=== PATIENT | female | born 1940 | race Hispanic/Latino ===

== ENCOUNTER 2017-11-11 21:26 | Emergency (ER) | payer MEDICARE ==
[~2017-11-11 21:26] MED LIST: ASPI-1197 PO; CARV3.12 PO; CEFD300C3 PO; GLIM4TAB3 PO; LOSA50TA37 PO; NAPR-1023 PO; SITA100T12 PO
[2017-11-11 22:05] LABS: BASOPHILS % (AUTO) 2.6 % (0.0-5.0); EOSINOPHILS % (AUTO) 2.2 % (0.0-8.0); HEMATOCRIT 25.8 % (36-48); LYMPHOCYTES % (AUTO) 15.5 % (21.0-51.0); MEAN CORPUSCULAR HEMOGLOBIN 23.6 pg (27.0-33.0); MEAN CORPUSCULAR HGB CONC 33.4 g/dL (32.0-36.0); MEAN CORPUSCULAR VOLUME 70.7 fL (79-99); MONOCYTES % (AUTO) 12.2 % (3.0-13.0); NEUTROPHILS % (AUTO) 67.5 % (40.0-77.0); PLATELET COUNT (AUTO) 129 K/uL (130-400); RED BLOOD CELL COUNT(AUTO) 3.65 MIL/uL (4.00-5.50); RED CELL DISTRIBUTION WIDTH 17.7 % (11.0-15.5); WHITE BLOOD COUNT (AUTO) 4.9 K/uL (4.8-10.8)
[2017-11-11 22:18] LABS: CREATININE 1.1 mg/dL (0.5-1.5); POTASSIUM 4.8 mmol/L (3.5-5.1)
== END 2017-11-11 23:47 | disposition home or self-care (01) ==
LOC: EDH 21:26
DX: I10 Essential (primary) hypertension (principal); E11.9 Type 2 diabetes mellitus without complications; E78.5 Hyperlipidemia, unspecified; Z90.49 Acquired absence of other specified parts of digestive tract
CPT/HCPCS: 36415; 80048; 82948; 84484; 85025; 93005

== ENCOUNTER 2017-11-15 19:38 | Emergency (ER) | payer MEDICARE | END 2017-11-15 21:01 | disposition home or self-care (01) | LOC: EDH 19:38 | DX: I10 Essential (primary) hypertension (principal); E11.9 Type 2 diabetes mellitus without complications; E78.5 Hyperlipidemia, unspecified; Z90.49 Acquired absence of other specified parts of digestive tract; Z98.890 Other specified postprocedural states | CPT/HCPCS: 82948; 99282 ==

== ENCOUNTER 2017-12-29 15:50 | Emergency (ER) | payer MEDICARE ==
[2017-12-29] MEDS ORDERED: ACETAMINOPHEN 325 MG TAB ONE (16:20)
[2017-12-29] MEDS ORDERED: NITROGLYCERIN 1GM/1 INCH PACKET TD ONE (16:20)
[2017-12-29 16:28] LABS: BASOPHILS % (AUTO) 0.4 % (0.0-5.0); EOSINOPHILS % (AUTO) 3.1 % (0.0-8.0); HEMATOCRIT 28.2 % (36-48); LYMPHOCYTES % (AUTO) 17.1 % (21.0-51.0); MEAN CORPUSCULAR HEMOGLOBIN 24.8 pg (27.0-33.0); MEAN CORPUSCULAR HGB CONC 32.2 g/dL (32.0-36.0); MONOCYTES % (AUTO) 10.6 % (3.0-13.0); NEUTROPHILS % (AUTO) 68.8 % (40.0-77.0); PLATELET COUNT (AUTO) 110 K/uL (130-400); RED BLOOD CELL COUNT(AUTO) 3.67 MIL/uL (4.00-5.50); RED CELL DISTRIBUTION WIDTH 25.7 % (11.0-15.5); WHITE BLOOD COUNT (AUTO) 4.2 K/uL (4.8-10.8)
[2017-12-29 16:38] LABS: POTASSIUM 4.6 mmol/L (3.5-5.1)
[2017-12-29 16:39] LABS: INR 1.02 (0.85-1.15); PROTHROMBIN TIME 10.7 SEC (9.6-11.6)
[2017-12-29 16:42] LABS: ALBUMIN 3.4 g/dL (3.5-5.0); BILIRUBIN,TOTAL 0.3 mg/dL (0.2-1.0); TOTAL PROTEIN, SERUM 6.9 g/dL (6.0-8.3)
[2017-12-29 17:29] LABS: APPEARANCE,URINE Clear (CLEAR); BILIRUBIN,URINE Negative (NEGATIVE); COLOR,URINE Yellow (YELLOW); GLUCOSE, URINE (UA) 500 mg/dL (NEGATIVE); KETONES,URINE Negative (NEGATIVE); LEUKOCYTE ESTERASE ,URINE Trace (NEGATIVE); NITRATE,URINE Negative (NEGATIVE); OCCULT BLOOD,URINE Negative (NEGATIVE); PH,URINE 6.5 (5.0-8.0); PROTEIN,URINE Negative (NEGATIVE)
[2017-12-29 17:38] LABS: BACTERIA,URINE None Seen /HPF (None Seen); RBC,URINE 0-1 /HPF (0-1); WBC,URINE 0-1 /HPF (0-1)
[2018-01-15] MEDS ORDERED: CARV12.511 PO (20:37)
[2018-01-15] MEDS ORDERED: LOSA50TA37 PO (20:37)
[2018-01-15] MEDS ORDERED: LORA1TAB3 PO (20:37)
[2018-01-15] MEDS ORDERED: SITA100T12 PO (20:37)
== END 2017-12-29 20:04 | disposition home or self-care (01) ==
LOC: EDH 15:50
DX: F41.9 Anxiety disorder, unspecified (principal); E11.9 Type 2 diabetes mellitus without complications; I10 Essential (primary) hypertension; E78.5 Hyperlipidemia, unspecified
CPT/HCPCS: 36415; 71045; 80053; 81001; 84484; 85025; 85610; 85730; 93005

== ENCOUNTER 2018-03-20 10:37 | Emergency (ER) | payer MEDICARE ==
[~2018-03-20 10:37] MED LIST changes: +CARV12.511 PO; -CARV3.12 PO; -CEFD300C3 PO; -GLIM4TAB3 PO; +LEVO250T59 PO; -LOSA50TA37 PO; -NAPR-1023 PO; -SITA100T12 PO
[2018-03-20 11:04] LABS: BASOPHILS % (AUTO) 0.4 % (0.0-5.0); EOSINOPHILS % (AUTO) 2.6 % (0.0-8.0); HEMATOCRIT 38.4 % (36-48); LYMPHOCYTES % (AUTO) 18.4 % (21.0-51.0); MEAN CORPUSCULAR HEMOGLOBIN 27.1 pg (27.0-33.0); MEAN CORPUSCULAR HGB CONC 32.2 g/dL (32.0-36.0); MEAN CORPUSCULAR VOLUME 84.1 fL (79-99); MONOCYTES % (AUTO) 9.9 % (3.0-13.0); NEUTROPHILS % (AUTO) 68.7 % (40.0-77.0); PLATELET COUNT (AUTO) 88 K/uL (130-400); RED BLOOD CELL COUNT(AUTO) 4.57 MIL/uL (4.00-5.50); WHITE BLOOD COUNT (AUTO) 3.1 K/uL (4.8-10.8)
[2018-03-20 11:39] LABS: CREATININE 1.3 mg/dL (0.5-1.5); POTASSIUM 4.9 mmol/L (3.5-5.1)
[2018-03-20 11:44] LABS: ALBUMIN 3.5 g/dL (3.5-5.0); BILIRUBIN,TOTAL 0.6 mg/dL (0.2-1.0); TOTAL PROTEIN, SERUM 7.4 g/dL (6.0-8.3)
[2018-03-20] MEDS ORDERED: ASPIRIN 325 MG TABLET ONE (11:50)
[2018-03-20 11:51] LABS: APPEARANCE,URINE Clear (CLEAR); BILIRUBIN,URINE Negative (NEGATIVE); COLOR,URINE Yellow (YELLOW); GLUCOSE, URINE (UA) Negative (NEGATIVE); KETONES,URINE Negative (NEGATIVE); LEUKOCYTE ESTERASE ,URINE Large (NEGATIVE); NITRATE,URINE Negative (NEGATIVE); OCCULT BLOOD,URINE Negative (NEGATIVE); PH,URINE 6.5 (5.0-8.0); PROTEIN,URINE Negative (NEGATIVE); UROBILINOGEN,URINE 0.2 mg/dL (0.2-1.0)
[2018-03-20 12:08] LABS: SQUAMOUS EPITHELIAL CELL,UR Few /HPF (0-2)
[2018-03-20 12:09] LABS: BACTERIA,URINE Few /HPF (None Seen); RBC,URINE None Seen /HPF (0-1); WBC,URINE 26-50 /HPF (0-1)
[2018-03-20] MEDS ORDERED: CEFTRIAXONE SODIUM 1 GM ONE (13:22)
[2018-03-20] MEDS ORDERED: SODIUM CHLORIDE 0.9% 100 ML IV ONE (13:23)
[2018-03-20] MEDS ORDERED: ACETAMINOPHEN 325 MG TAB ONE ×2 (14:37→14:45)
== END 2018-03-20 16:48 | disposition home or self-care (01) ==
LOC: EDH 10:37
DX: R07.89 Other chest pain (principal); N30.00 Acute cystitis without hematuria; R51 Headache; E11.9 Type 2 diabetes mellitus without complications; I10 Essential (primary) hypertension; Z79.899 Other long term (current) drug therapy
CPT/HCPCS: 36415; 80053; 81001; 82553; 84484 ×2; 85025; 87088; 87186; 93005 ×2; 96374; 99291; J0696

== ENCOUNTER 2018-03-29 09:26 | Inpatient (IN) | payer MEDICARE ==
[~2018-03-29] VITALS: Ht 154.9 cm; Wt 95.3 kg
[2018-03-29 10:25] LABS: BASOPHILS % (AUTO) 0.5 % (0.0-5.0); MEAN CORPUSCULAR HEMOGLOBIN 27.1 pg (27.0-33.0); MEAN CORPUSCULAR HGB CONC 32.7 g/dL (32.0-36.0); MEAN CORPUSCULAR VOLUME 82.7 fL (79-99); NEUTROPHILS % (AUTO) 68.5 % (40.0-77.0); NUCLEATED RED BLOOD CELLS 0.1 % (0.0-0.19); PLATELET COUNT (AUTO) 110 K/uL (130-400); RED BLOOD CELL COUNT(AUTO) 4.47 MIL/uL (4.00-5.50); RED CELL DISTRIBUTION WIDTH 16.7 % (11.0-15.5); WHITE BLOOD COUNT (AUTO) 4.9 K/uL (4.8-10.8)
[2018-03-29 10:40] LABS: INR 1.06 (0.85-1.15); PARTIAL THROMBOPLASTIN TIME 29.2 SEC (26.3-35.5); PROTHROMBIN TIME 11.1 SEC (9.6-11.6)
[2018-03-29 11:05] LABS: CREATININE 1.5 mg/dL (0.5-1.5); POTASSIUM 5.1 mmol/L (3.5-5.1)
[2018-03-29 11:10] LABS: ALBUMIN 3.3 g/dL (3.5-5.0); BILIRUBIN,TOTAL 0.7 mg/dL (0.2-1.0); TOTAL PROTEIN, SERUM 7.2 g/dL (6.0-8.3)
[2018-03-29] MEDS ORDERED: ACETAMINOPHEN 325 MG TAB PO PRN (15:15)
[2018-03-29] MEDS ORDERED: ONDANSETRON HCL 4 MG/2 ML VIAL IV PRN (15:15)
[2018-03-29] MEDS ORDERED: MORPHINE SULFATE 2 MG/ML 1ML SYG IV PRN (15:15)
[2018-03-29] MEDS ORDERED: HYDRALAZINE HCL 20 MG/ML VIAL IV PRN (15:15)
[2018-03-29] MEDS: INSULIN HUMULIN R 100 UNIT/ML 3ML SQ SCH ×2 (16:30→21:00)
[2018-03-29 16:36] VITALS: BP 163/81
[2018-03-29] MEDS: PANTOPRAZOLE 40 MG/VIAL IVP SCH ×2 (16:41→19:56)
[2018-03-29] MEDS: SODIUM CHLORIDE 0.9% 1000ML 1,000 ML IV SCH (16:50)
[2018-03-29 19:26] VITALS: BP 162/67
[2018-03-29] MEDS: CARVEDILOL 12.5 MG TABLET PO SCH (19:59)
[2018-03-29 23:13] VITALS: BP 125/54
[2018-03-30] VITALS (18 sets, daily range): BP systolic 104–159; BP diastolic 56–73
[2018-03-30] MEDS: SODIUM CHLORIDE 0.9% 1000ML 1,000 ML IV SCH ×3 (03:12→22:19)
[2018-03-30 05:24] LABS: HEMATOCRIT 34.2 % (36-48); MEAN CORPUSCULAR HEMOGLOBIN 28.5 pg (27.0-33.0); MEAN CORPUSCULAR HGB CONC 34.2 g/dL (32.0-36.0); MEAN CORPUSCULAR VOLUME 83.2 fL (79-99); PLATELET COUNT (AUTO) 111 K/uL (130-400); RED BLOOD CELL COUNT(AUTO) 4.11 MIL/uL (4.00-5.50); RED CELL DISTRIBUTION WIDTH 17.3 % (11.0-15.5); WHITE BLOOD COUNT (AUTO) 4.1 K/uL (4.8-10.8)
[2018-03-30 05:36] LABS: CREATININE 1.3 mg/dL (0.5-1.5); POTASSIUM 4.7 mmol/L (3.5-5.1)
[2018-03-30] MEDS: INSULIN HUMULIN R 100 UNIT/ML 3ML SQ SCH ×4 (06:12→21:00)
[2018-03-30] MEDS: PANTOPRAZOLE 40 MG/VIAL IVP SCH ×2 (09:00→22:17)
[2018-03-30] MEDS: CARVEDILOL 12.5 MG TABLET PO SCH ×2 (09:00→22:17)
[2018-03-30] MEDS ORDERED: PROPOFOL 10 MG/ML 20ML VIAL IV ONE ×2 (14:54)
[2018-03-30] MEDS ORDERED: PANTOPRAZOLE SODIUM 80 MG in SODIUM CHLORIDE 0.9% 100 ML IV SCH (18:00)
[2018-03-30] MEDS ORDERED: PANTOPRAZOLE 40 MG/VIAL IV SCH (18:00)
[2018-03-31] VITALS (7 sets, daily range): BP systolic 114–151; BP diastolic 49–70
[2018-03-31 04:55] LABS: BASOPHILS % (AUTO) 0.5 % (0.0-5.0); HEMATOCRIT 32.4 % (36-48); LYMPHOCYTES % (AUTO) 17.9 % (21.0-51.0); MEAN CORPUSCULAR HEMOGLOBIN 27.6 pg (27.0-33.0); MEAN CORPUSCULAR HGB CONC 33.2 g/dL (32.0-36.0); MEAN CORPUSCULAR VOLUME 82.9 fL (79-99); MONOCYTES % (AUTO) 17.5 % (3.0-13.0); NEUTROPHILS % (AUTO) 63.1 % (40.0-77.0); PLATELET COUNT (AUTO) 85 K/uL (130-400); RED BLOOD CELL COUNT(AUTO) 3.91 MIL/uL (4.00-5.50); RED CELL DISTRIBUTION WIDTH 16.9 % (11.0-15.5); WHITE BLOOD COUNT (AUTO) 3.2 K/uL (4.8-10.8)
[2018-03-31 04:59] LABS: POTASSIUM 4.4 mmol/L (3.5-5.1)
[2018-03-31 05:04] LABS: INR 1.06 (0.85-1.15); PROTHROMBIN TIME 11.1 SEC (9.6-11.6)
[2018-03-31 05:32] LABS: BAND NEUTROPHILS % (MANUAL) 11 % (0-2); BASOPHILS % (MANUAL) 2 % (0-2); EOSINOPHILS % (MANUAL) 2 % (1-6); LYMPHOCYTES % (MANUAL) 20 % (22-44); MAN.DIFF COMMENT-IMPRESSION MANUAL DIFFERENTIAL; MONOCYTES % (MANUAL) 13 % (2-9); PLATELET MORPHOLOGY COMMENT DECREASED; SEGMENTED NEUTROPHILS % 52 % (40-70)
[2018-03-31] MEDS: PANTOPRAZOLE 40 MG/VIAL IVP SCH ×2 (09:00→21:30)
[2018-03-31] MEDS: CARVEDILOL 12.5 MG TABLET PO SCH ×2 (09:26→21:30)
[2018-03-31] MEDS: INSULIN HUMULIN R 100 UNIT/ML 3ML SQ SCH ×2 (11:30→21:00)
[2018-03-31] MEDS ORDERED: PROP10TA10 PO (18:36)
[2018-03-31] MEDS ORDERED: PANT40TA PO (18:36)
[2018-03-31] MEDS ORDERED: LACT10SO9 PO (18:36)
[2018-03-31] MEDS: SODIUM CHLORIDE 0.9% 1000ML 1,000 ML IV SCH (19:50)
== END 2018-03-31 22:30 | disposition home or self-care (01) | DRG 432 ==
LOC: EDH 09:26 → EDHIP 14:10 → 3DH 15:25
PROVIDERS: ADMIT Hospitalist; ATTEND Hospitalist
PROC: 06L38CZ Occlusion of Esophageal Vein with Extraluminal Device, Via Natural or Artificial Opening Endoscopic (ICD-10-PCS; principal; 2018-03-30)
DX: K74.60 Unspecified cirrhosis of liver (principal); I85.11 Secondary esophageal varices with bleeding; K29.01 Acute gastritis with bleeding; N17.9 Acute kidney failure, unspecified; D61.818 Other pancytopenia; K76.6 Portal hypertension; E11.21 Type 2 diabetes mellitus with diabetic nephropathy; I10 Essential (primary) hypertension; R19.5 Other fecal abnormalities; K31.89 Other diseases of stomach and duodenum; K55.20 Angiodysplasia of colon without hemorrhage; K80.20 Calculus of gallbladder without cholecystitis without obstruction; Z79.82 Long term (current) use of aspirin; Z79.899 Other long term (current) drug therapy; Z86.73 Personal history of transient ischemic attack (TIA), and cerebral infarction without residual deficits; Z83.3 Family history of diabetes mellitus
CPT/HCPCS: 36415; 43244; 76700; 80048; 80053; 82105; 82140; 82270; 82948; 83690; 84484; 85025; 85027; 85610; 85730; 86677; 93005; 93975; C9113; J2704; J7030

== ENCOUNTER 2018-10-24 22:31 | Emergency (ER) | payer MEDICARE ==
[~2018-10-24 22:31] MED LIST changes: +LACT10SO9 PO; +PANT40TA PO; +PROP10TA10 PO
[2018-10-24] MEDS ORDERED: HYDROXYZINE HCL 25 MG TABLET ONE (22:58)
== END 2018-10-25 00:03 | disposition home or self-care (01) ==
LOC: EDH 22:31
DX: F41.9 Anxiety disorder, unspecified (principal); E11.9 Type 2 diabetes mellitus without complications; I10 Essential (primary) hypertension

== ENCOUNTER 2019-01-10 10:25 | Inpatient (IN) | payer MEDICARE | END 2019-01-14 13:17 | disposition home or self-care (01) | LOC: EDH 10:25 → 2DH 01-11 18:28 → EDHIP 14:31 | DX: D61.818 Other pancytopenia (principal); K92.2 Gastrointestinal hemorrhage, unspecified; N17.9 Acute kidney failure, unspecified; D62 Acute posthemorrhagic anemia; E87.5 Hyperkalemia; R19.5 Other fecal abnormalities ==

== ENCOUNTER 2019-04-11 09:28 | Day surgery (SDC) | payer MEDICARE ==
[2019-04-11] VITALS (8 sets, daily range): BP systolic 113–176; BP diastolic 63–75
[~2019-04-11] VITALS: Ht 154.9 cm; Wt 81.6 kg
[~2019-04-11 09:28] MED LIST changes: +AMLO5TAB9 PO; -CARV12.511 PO; -LACT10SO9 PO; -LEVO250T59 PO; +LOSA100T58 PO; +METF-444 PO; -PANT40TA PO; -PROP10TA10 PO; +PROPOFOL 10 MG/ML 20ML VIAL IV ONE; +SITA100T12 PO; +SODIUM CHLORIDE 0.9% 1000ML 1,000 ML IV ONE
[2019-04-11] MEDS ORDERED: FENTANYL CITRATE PF 50 MCG/1 ML 2ML VIAL ONE (12:03)
== END 2019-04-11 12:40 | disposition home or self-care (01) ==
LOC: ENDO 09:28 → DAH 09:28 → ENDO 12:40
PROVIDERS: ATTEND Internal Medicine Gastroenterology
DX: I85.01 Esophageal varices with bleeding (principal); I10 Essential (primary) hypertension; E11.9 Type 2 diabetes mellitus without complications; M19.90 Unspecified osteoarthritis, unspecified site; E66.9 Obesity, unspecified; D64.9 Anemia, unspecified; E78.2 Mixed hyperlipidemia; K74.60 Unspecified cirrhosis of liver
CPT/HCPCS: 43244; 82948 ×2; A4215; A4221; A4222; A4223; A4606; A4615; A4620; A4663; J2704; J3010; J7030; 43246

== ENCOUNTER 2020-02-13 09:50 | Emergency (ER) | payer MEDICARE ==
[~2020-02-13 09:50] MED LIST changes: -PROPOFOL 10 MG/ML 20ML VIAL IV ONE; -SODIUM CHLORIDE 0.9% 1000ML 1,000 ML IV ONE
[2020-02-13 10:22] LABS: BASOPHILS % (AUTO) 0.2 % (0.0-5.0); EOSINOPHILS % (AUTO) 1.4 % (0.0-8.0); HEMATOCRIT 32.4 % (36-48); LYMPHOCYTES % (AUTO) 10.1 % (21.0-51.0); MEAN CORPUSCULAR HEMOGLOBIN 26.4 pg (27.0-33.0); MEAN CORPUSCULAR HGB CONC 33.3 g/dL (32.0-36.0); MEAN CORPUSCULAR VOLUME 79.2 fL (79-99); MONOCYTES % (AUTO) 13.3 % (3.0-13.0); NEUTROPHILS % (AUTO) 74.2 % (40.0-77.0); PLATELET COUNT (AUTO) 143 K/uL (130-400); RED BLOOD CELL COUNT(AUTO) 4.09 MIL/uL (4.00-5.50); WHITE BLOOD COUNT (AUTO) 6.6 K/uL (4.8-10.8)
[2020-02-13 10:37] LABS: CREATININE 1.5 mg/dL (0.5-1.5); POTASSIUM 4.4 mmol/L (3.5-5.1)
[2020-02-13 10:41] LABS: ALBUMIN 3.5 g/dL (3.5-5.0); BILIRUBIN,TOTAL 0.6 mg/dL (0.2-1.0); TOTAL PROTEIN, SERUM 7.3 g/dL (6.0-8.3)
[2020-02-13 11:28] LABS: APPEARANCE,URINE Clear (CLEAR); BILIRUBIN,URINE Negative (NEGATIVE); COLOR,URINE Yellow (YELLOW); GLUCOSE, URINE (UA) Negative (NEGATIVE); KETONES,URINE Negative (NEGATIVE); LEUKOCYTE ESTERASE ,URINE Trace (NEGATIVE); NITRATE,URINE Negative (NEGATIVE); OCCULT BLOOD,URINE Negative (NEGATIVE); PH,URINE 5.5 (5.0-8.0); PROTEIN,URINE Negative (NEGATIVE); UROBILINOGEN,URINE 0.2 mg/dL (0.2-1.0)
[2020-02-13 11:41] LABS: BACTERIA,URINE Rare /HPF (None Seen); RBC,URINE None Seen /HPF (0-1); SQUAMOUS EPITHELIAL CELL,UR 0-2 /HPF (0-2); WBC,URINE 0-1 /HPF (0-1)
== END 2020-02-13 12:04 | disposition home or self-care (01) ==
LOC: EDH 09:50
DX: E11.65 Type 2 diabetes mellitus with hyperglycemia (principal); R19.7 Diarrhea, unspecified; I10 Essential (primary) hypertension
CPT/HCPCS: 36415; 71045; 80053; 81001; 82948; 84484; 85025; 87804

== ENCOUNTER 2020-05-24 15:01 | Emergency (ER) | payer MEDICARE ==
[~2020-05-24 15:01] MED LIST changes: +AMLO-257 PO; -AMLO5TAB9 PO
[2020-05-24 15:30] LABS: BASOPHILS % (AUTO) 0.2 % (0.0-5.0); EOSINOPHILS % (AUTO) 3.1 % (0.0-8.0); HEMATOCRIT 34.6 % (36-48); LYMPHOCYTES % (AUTO) 18.2 % (21.0-51.0); MEAN CORPUSCULAR HEMOGLOBIN 26.8 pg (27.0-33.0); MEAN CORPUSCULAR HGB CONC 32.4 g/dL (32.0-36.0); MEAN CORPUSCULAR VOLUME 82.8 fL (79-99); MONOCYTES % (AUTO) 11.6 % (3.0-13.0); NEUTROPHILS % (AUTO) 66.4 % (40.0-77.0); PLATELET COUNT (AUTO) 114 K/uL (130-400); RED BLOOD CELL COUNT(AUTO) 4.18 MIL/uL (4.00-5.50); RED CELL DISTRIBUTION WIDTH 16.2 % (11.0-15.5); WHITE BLOOD COUNT (AUTO) 4.2 K/uL (4.8-10.8)
[2020-05-24 15:45] LABS: INR 0.95 (0.85-1.15); PARTIAL THROMBOPLASTIN TIME 27.6 SEC (26.3-35.5); PROTHROMBIN TIME 10.3 SEC (9.6-11.6)
[2020-05-24 16:01] LABS: CREATININE 1.6 mg/dL (0.5-1.5); POTASSIUM 5.5 mmol/L (3.5-5.1)
[2020-05-24 16:05] LABS: ALBUMIN 3.6 g/dL (3.5-5.0); BILIRUBIN,TOTAL 0.4 mg/dL (0.2-1.0); TOTAL PROTEIN, SERUM 7.8 g/dL (6.0-8.3)
== END 2020-05-24 16:41 | disposition home or self-care (01) ==
LOC: EDH 15:01
DX: E87.5 Hyperkalemia (principal); E11.9 Type 2 diabetes mellitus without complications; I10 Essential (primary) hypertension
CPT/HCPCS: 36415; 80053; 85025; 85610; 85730

== ENCOUNTER 2020-09-16 18:43 | Emergency (ER) | payer MEDICARE ==
[2020-09-16 19:18] LABS: BASOPHILS % (AUTO) 0.4 % (0.0-5.0); EOSINOPHILS % (AUTO) 3.2 % (0.0-8.0); HEMATOCRIT 35.5 % (36-48); LYMPHOCYTES % (AUTO) 16.2 % (21.0-51.0); MEAN CORPUSCULAR HEMOGLOBIN 25.9 pg (27.0-33.0); MEAN CORPUSCULAR HGB CONC 32.4 g/dL (32.0-36.0); MONOCYTES % (AUTO) 12.2 % (3.0-13.0); NEUTROPHILS % (AUTO) 67.6 % (40.0-77.0); PLATELET COUNT (AUTO) 128 K/uL (130-400); RED BLOOD CELL COUNT(AUTO) 4.44 MIL/uL (4.00-5.50); RED CELL DISTRIBUTION WIDTH 15.7 % (11.0-15.5); WHITE BLOOD COUNT (AUTO) 4.8 K/uL (4.8-10.8)
[2020-09-16 19:21] LABS: CREATININE 1.1 mg/dL (0.5-1.5); POTASSIUM 4.2 mmol/L (3.5-5.1)
[2020-09-16 19:35] LABS: ALBUMIN 3.3 g/dL (3.5-5.0); BILIRUBIN,TOTAL 0.5 mg/dL (0.2-1.0)
[2020-11-25] MEDS ORDERED: CEPH500C2 PO (18:28)
[2020-11-25] MEDS ORDERED: CARV12.511 PO (18:28)
[2020-12-02] MEDS ORDERED: FERR-72 PO (09:54)
[2020-12-02] MEDS ORDERED: FURO20TA6 PO (09:54)
== END 2020-09-16 22:22 | disposition home or self-care (01) ==
LOC: EDH 18:43
DX: F41.1 Generalized anxiety disorder (principal); R03.0 Elevated blood-pressure reading, without diagnosis of hypertension; E11.9 Type 2 diabetes mellitus without complications
CPT/HCPCS: 36415; 80053; 84484; 85025; 93005

== ENCOUNTER 2020-09-19 15:10 | Inpatient (IN) | payer MEDICARE ==
[~2020-09-19] VITALS: Ht 157.5 cm; Wt 79.8 kg
[2020-09-19 15:48] LABS: BASOPHILS % (AUTO) 0.2 % (0.0-5.0); EOSINOPHILS % (AUTO) 2.2 % (0.0-8.0); HEMATOCRIT 31.6 % (36-48); LYMPHOCYTES % (AUTO) 14.4 % (21.0-51.0); MEAN CORPUSCULAR HEMOGLOBIN 25.8 pg (27.0-33.0); MEAN CORPUSCULAR VOLUME 80.6 fL (79-99); MONOCYTES % (AUTO) 12.6 % (3.0-13.0); NEUTROPHILS % (AUTO) 70.2 % (40.0-77.0); PLATELET COUNT (AUTO) 105 K/uL (130-400); RED BLOOD CELL COUNT(AUTO) 3.92 MIL/uL (4.00-5.50); RED CELL DISTRIBUTION WIDTH 15.8 % (11.0-15.5); WHITE BLOOD COUNT (AUTO) 4.5 K/uL (4.8-10.8)
[2020-09-19 16:00] LABS: CREATININE 1.2 mg/dL (0.5-1.5); POTASSIUM 4.3 mmol/L (3.5-5.1)
[2020-09-19 16:02] LABS: INR 1.07 (0.85-1.15); PROTHROMBIN TIME 11.6 SEC (9.6-11.6)
[2020-09-19 16:03] LABS: PARTIAL THROMBOPLASTIN TIME 27.9 SEC (26.3-35.5)
[2020-09-19 16:05] LABS: ALBUMIN 3.2 g/dL (3.5-5.0); BILIRUBIN,TOTAL 0.4 mg/dL (0.2-1.0); TOTAL PROTEIN, SERUM 7.1 g/dL (6.0-8.3)
[2020-09-19] MEDS ORDERED: MECLIZINE HCL 25 MG TABLET ONE (17:13)
[2020-09-19] MEDS ORDERED: 0.9% NACL 500ML IV.SOLN 500 ML IV ONE (17:14)
[2020-09-19] MEDS ORDERED: LORAZEPAM 2 MG/ML 1 ML VIAL ONE (18:34)
[2020-09-19] MEDS: 0.9%NACL 1000ML 1,000 ML IV SCH (20:15)
[2020-09-19] MEDS ORDERED: GLUCAGON 1MG KIT 1 MG ML IM PRN (20:15)
[2020-09-19] MEDS ORDERED: DEXTROSE 50%-WATER 50 ML DISP.SYRIN IV PRN (20:15)
[2020-09-19] MEDS: INSULIN R PO SS1 SQ SCH (21:00)
[2020-09-19] MEDS ORDERED: IOHEXOL-350 75 ML VIAL IV ONE (21:44)
[2020-09-19 23:18] LABS: CREATINE KINASE, TOTAL 60 U/L (21-232); MYOGLOBIN 98 ng/mL (10-92); TROPONIN I < 0.04 ng/mL (0.00-0.06)
[2020-09-20] VITALS (7 sets, daily range): BP systolic 128–164; BP diastolic 52–71
[2020-09-20] MEDS: 0.9%NACL 1000ML 1,000 ML IV SCH ×2 (01:47→05:51)
[2020-09-20] MEDS: INSULIN R PO SS1 SQ SCH ×4 (05:52→21:18)
[2020-09-20 05:58] LABS: RETICULOCYTE % (AUTO) 1.41 % (0.42-2.23)
[2020-09-20 06:05] LABS: HEMOGLOBIN A1C 6.8 % (4.0-6.0)
[2020-09-20 06:26] LABS: CREATINE KINASE, TOTAL 55 U/L (21-232); MYOGLOBIN 120 ng/mL (10-92); TROPONIN I < 0.04 ng/mL (0.00-0.06)
[2020-09-20 06:37] LABS: THYROID STIMULATING HORMONE 4.13 uIU/mL (0.36-3.74)
[2020-09-20] MEDS ORDERED: PROP10TA10 PO ×2 (13:22)
[2020-09-20] MEDS ORDERED: HYDR-3421 PO ×2 (13:22)
[2020-09-20] MEDS ORDERED: HYDROXYZINE 25 MG TABLET PO PRN (14:00)
[2020-09-20 15:32] LABS: BASOPHILS % (AUTO) 0.3 % (0.0-5.0); EOSINOPHILS % (AUTO) 3.3 % (0.0-8.0); HEMATOCRIT 30.6 % (36-48); LYMPHOCYTES % (AUTO) 19.5 % (21.0-51.0); MEAN CORPUSCULAR HEMOGLOBIN 26.2 pg (27.0-33.0); MEAN CORPUSCULAR HGB CONC 32.4 g/dL (32.0-36.0); MONOCYTES % (AUTO) 16.5 % (3.0-13.0); NEUTROPHILS % (AUTO) 60.1 % (40.0-77.0); PLATELET COUNT (AUTO) 92 K/uL (130-400); RED BLOOD CELL COUNT(AUTO) 3.78 MIL/uL (4.00-5.50); RED CELL DISTRIBUTION WIDTH 15.9 % (11.0-15.5)
[2020-09-20 15:55] LABS: CREATININE 1.4 mg/dL (0.5-1.5); POTASSIUM 4.4 mmol/L (3.5-5.1)
[2020-09-20 16:18] LABS: CREATINE KINASE, TOTAL 43 U/L (21-232); MYOGLOBIN 90 ng/mL (10-92); TROPONIN I < 0.04 ng/mL (0.00-0.06)
[2020-09-20] MEDS: METFORMIN HCL 500 MG TABLET PO SCH (17:11)
[2020-09-20] MEDS ORDERED: FAMOTIDINE 20MG VIAL IV SCH (21:00)
[2020-09-21 03:24] VITALS: BP 126/45
[2020-09-21] MEDS: INSULIN R PO SS1 SQ SCH ×4 (06:30→21:00)
[2020-09-21 08:00] VITALS: BP 138/57
[2020-09-21] MEDS: (Sitagliptin Phosphate (Januvia) 100 MG) PO SCH (09:00)
[2020-09-21] MEDS ORDERED: NON-FORMULARY MEDICATION 1 EACH (Sitagliptin Phosphate (Januvia) 100 MG) PO SCH (09:00)
[2020-09-21] MEDS: AMLODIPINE 5 MG TAB PO SCH (09:19)
[2020-09-21] MEDS: ASPIRIN 81MG CHEW TAB PO SCH (09:20)
[2020-09-21] MEDS: FERROUS SULFATE 325 MG TABLET.DR PO SCH (09:20)
[2020-09-21] MEDS: PROPRANOLOL HCL 10 MG TAB PO SCH (09:20)
[2020-09-21] MEDS: LOSARTAN 100 MG TABLET PO SCH (09:20)
[2020-09-21] MEDS: METFORMIN HCL 500 MG TABLET PO SCH ×2 (09:20→17:15)
[2020-09-21] MEDS: ENOXAPARIN SODIUM 40 MG/0.4 ML SYRINGE SQ SCH (09:20)
[2020-09-21 12:00] VITALS: BP 135/48
[2020-09-21] MEDS ORDERED: FAMOTIDINE 20MG TAB PO SCH (14:00)
[2020-09-21 15:52] VITALS: BP 138/57
[2020-09-21] MEDS: FAMOTIDINE 20MG TAB PO SCH (17:15)
[2020-09-21 19:05] VITALS: BP 135/47
[2020-09-21] MEDS ORDERED: ATORVASTATIN 20 MG TABLET PO SCH (21:00)
[2020-09-21 23:46] VITALS: BP 137/51
[2020-09-22 03:23] VITALS: BP 116/40
[2020-09-22 06:13] LABS: BASOPHILS % (AUTO) 0.3 % (0.0-5.0); EOSINOPHILS % (AUTO) 3.5 % (0.0-8.0); HEMATOCRIT 29.9 % (36-48); LYMPHOCYTES % (AUTO) 25.3 % (21.0-51.0); MEAN CORPUSCULAR HEMOGLOBIN 25.7 pg (27.0-33.0); MEAN CORPUSCULAR HGB CONC 32.4 g/dL (32.0-36.0); MEAN CORPUSCULAR VOLUME 79.3 fL (79-99); MONOCYTES % (AUTO) 16.5 % (3.0-13.0); NEUTROPHILS % (AUTO) 54.1 % (40.0-77.0); PLATELET COUNT (AUTO) 96 K/uL (130-400); RED BLOOD CELL COUNT(AUTO) 3.77 MIL/uL (4.00-5.50); RED CELL DISTRIBUTION WIDTH 15.8 % (11.0-15.5); WHITE BLOOD COUNT (AUTO) 3.8 K/uL (4.8-10.8)
[2020-09-22 06:23] LABS: CREATININE 1.2 mg/dL (0.5-1.5); POTASSIUM 3.9 mmol/L (3.5-5.1)
[2020-09-22] MEDS: INSULIN R PO SS1 SQ SCH ×3 (06:51→16:30)
[2020-09-22 08:00] VITALS: BP 143/55
[2020-09-22] MEDS: (Sitagliptin Phosphate (Januvia) 100 MG) PO SCH (08:08)
[2020-09-22] MEDS: ASPIRIN 81MG CHEW TAB PO SCH (09:23)
[2020-09-22] MEDS: FERROUS SULFATE 325 MG TABLET.DR PO SCH (09:23)
[2020-09-22] MEDS: AMLODIPINE 5 MG TAB PO SCH (09:23)
[2020-09-22] MEDS: LOSARTAN 100 MG TABLET PO SCH (09:23)
[2020-09-22] MEDS: PROPRANOLOL HCL 10 MG TAB PO SCH (09:24)
[2020-09-22] MEDS: METFORMIN HCL 500 MG TABLET PO SCH ×2 (09:26→17:17)
[2020-09-22] MEDS: ENOXAPARIN SODIUM 40 MG/0.4 ML SYRINGE SQ SCH (09:27)
[2020-09-22 12:00] VITALS: BP 109/40
[2020-09-22] MEDS: FAMOTIDINE 20MG TAB PO SCH (13:00)
[2020-09-22] MEDS ORDERED: ATOR10 PO ×2 (14:36)
[2020-09-22 16:00] VITALS: BP 117/39
[2020-11-25] MEDS ORDERED: CEPH500C2 PO (18:28)
[2020-11-25] MEDS ORDERED: CARV12.511 PO (18:28)
[2020-12-02] MEDS ORDERED: FERR-72 PO (09:54)
[2020-12-02] MEDS ORDERED: FURO20TA6 PO (09:54)
== END 2020-09-22 19:25 | disposition home or self-care (01) | DRG 149 ==
LOC: EDH 15:10 → EDHIP 19:39 → OBSVTOIN 19:39 → 4DH 09-20 00:55
PROVIDERS: ADMIT Internal Medicine; ATTEND Internal Medicine
DX: R42 Dizziness and giddiness (principal); D61.818 Other pancytopenia; E87.1 Hypo-osmolality and hyponatremia; F41.9 Anxiety disorder, unspecified; M19.90 Unspecified osteoarthritis, unspecified site; E11.9 Type 2 diabetes mellitus without complications; E78.5 Hyperlipidemia, unspecified; I10 Essential (primary) hypertension; R53.81 Other malaise; E66.9 Obesity, unspecified; Z68.32 Body mass index [BMI] 32.0-32.9, adult; Z86.73 Personal history of transient ischemic attack (TIA), and cerebral infarction without residual deficits; Z83.3 Family history of diabetes mellitus
CPT/HCPCS: 36415; 70450; 70496; 70498; 70551; 71045; 80048; 80053; 80061; 82550; 82607; 82746; 82948; 83036; 83540; 83550; 83874; 84443; 84484; 85025; 85045; 85610; 85730; 93005; 93306; 93356; 97039; G0378; J1650; J1815; J2060; J3490; J7040; Q9967

== ENCOUNTER 2020-11-17 22:28 | Emergency (ER) | payer MEDICARE ==
[~2020-11-17 22:28] MED LIST changes: +ATOR10 PO; +HYDR-3421 PO; +PROP10TA10 PO
[2020-11-17 23:30] LABS: BASOPHILS % (AUTO) 0.2 % (0.0-5.0); EOSINOPHILS % (AUTO) 2.3 % (0.0-8.0); HEMATOCRIT 27.6 % (36-48); LYMPHOCYTES % (AUTO) 12.1 % (21.0-51.0); MEAN CORPUSCULAR HEMOGLOBIN 25.4 pg (27.0-33.0); MEAN CORPUSCULAR HGB CONC 31.5 g/dL (32.0-36.0); MEAN CORPUSCULAR VOLUME 80.5 fL (79-99); MONOCYTES % (AUTO) 16.2 % (3.0-13.0); NEUTROPHILS % (AUTO) 68.8 % (40.0-77.0); PLATELET COUNT (AUTO) 90 K/uL (130-400); RED BLOOD CELL COUNT(AUTO) 3.43 MIL/uL (4.00-5.50); RED CELL DISTRIBUTION WIDTH 15.6 % (11.0-15.5); WHITE BLOOD COUNT (AUTO) 5.6 K/uL (4.8-10.8)
[2020-11-17 23:42] LABS: CREATININE 1.5 mg/dL (0.5-1.5); POTASSIUM 5.1 mmol/L (3.5-5.1)
[2020-11-17 23:47] LABS: ALBUMIN 3.1 g/dL (3.5-5.0); BILIRUBIN,TOTAL 0.4 mg/dL (0.2-1.0)
[2020-11-17 23:51] LABS: INR 1.05 (0.85-1.15); PROTHROMBIN TIME 11.4 SEC (9.6-11.6)
[2020-11-17 23:52] LABS: PARTIAL THROMBOPLASTIN TIME 23.2 SEC (26.3-35.5)
[2020-11-18 00:09] LABS: B-TYPE NATRIURETIC PEPTIDE 284 pg/mL (0-100)
[2020-11-18 00:12] LABS: BILIRUBIN,URINE Negative (NEGATIVE); COLOR,URINE Yellow (YELLOW); GLUCOSE, URINE (UA) Negative (NEGATIVE); KETONES,URINE Trace mg/dL (NEGATIVE); LEUKOCYTE ESTERASE ,URINE Large (NEGATIVE); NITRATE,URINE Negative (NEGATIVE); OCCULT BLOOD,URINE Negative (NEGATIVE); PH,URINE 5.5 (5.0-8.0); PROTEIN,URINE Trace mg/dL (NEGATIVE)
[2020-11-18 00:14] LABS: APPEARANCE,URINE SLIGHTLY CLOUDY (CLEAR)
[2020-11-18 00:24] LABS: RBC,URINE None Seen /HPF (0-1)
[2020-11-18 00:25] LABS: BACTERIA,URINE Few /HPF (None Seen)
[2020-11-18] MEDS ORDERED: SODIUM CHLORIDE 0.9% 100 ML IV ONE (00:43)
[2020-11-18] MEDS ORDERED: CEFTRIAXONE SODIUM 1 GM ONE (00:43)
== END 2020-11-18 04:26 | disposition home or self-care (01) ==
LOC: EDH 22:28
DX: N39.0 Urinary tract infection, site not specified (principal); R53.81 Other malaise; R53.83 Other fatigue; Z20.822 Contact with and (suspected) exposure to COVID-19; M19.90 Unspecified osteoarthritis, unspecified site; E11.9 Type 2 diabetes mellitus without complications; E78.00 Pure hypercholesterolemia, unspecified; F41.9 Anxiety disorder, unspecified; I10 Essential (primary) hypertension
CPT/HCPCS: 36415; 71045; 80053; 81001; 82550; 83605; 83880; 84484; 85025; 85610; 85730; 87040 ×2; 87088; 93005; 96365; 99285; J0696

== ENCOUNTER 2021-05-23 10:12 | Emergency (ER) | payer MEDICARE ==
[~2021-05-23] VITALS: Ht 154.9 cm; Wt 80.7 kg
[~2021-05-23 10:12] MED LIST changes: -ASPI-1197 PO; -ATOR10 PO; +CEPH500C2 PO; +FERR-72 PO; +FURO20TA6 PO; -HYDR-3421 PO
[2021-05-23 10:29] LABS: BASOPHILS % (AUTO) 0.2 % (0.0-5.0); EOSINOPHILS % (AUTO) 2.5 % (0.0-8.0); HEMATOCRIT 29.9 % (36-48); MEAN CORPUSCULAR HGB CONC 31.8 g/dL (32.0-36.0); MEAN CORPUSCULAR VOLUME 84.9 fL (79-99); MONOCYTES % (AUTO) 8.1 % (3.0-13.0); NEUTROPHILS % (AUTO) 75.6 % (40.0-77.0); PLATELET COUNT (AUTO) 101 K/uL (130-400); RED BLOOD CELL COUNT(AUTO) 3.52 MIL/uL (4.00-5.50); RED CELL DISTRIBUTION WIDTH 15.4 % (11.0-15.5); WHITE BLOOD COUNT (AUTO) 4.8 K/uL (4.8-10.8)
[2021-05-23 10:37] LABS: CREATININE 1.3 mg/dL (0.5-1.5); POTASSIUM 4.6 mmol/L (3.5-5.1)
[2021-05-23 10:42] LABS: ALBUMIN 3.1 g/dL (3.5-5.0); BILIRUBIN,TOTAL 0.7 mg/dL (0.2-1.0); TOTAL PROTEIN, SERUM 6.9 g/dL (6.0-8.3)
[2021-05-23 11:01] LABS: MAGNESIUM 1.7 mg/dL (1.80-2.40)
[2021-05-23 13:17] LABS: APPEARANCE,URINE Clear (CLEAR); BILIRUBIN,URINE Negative (NEGATIVE); COLOR,URINE Yellow (YELLOW); GLUCOSE, URINE (UA) Negative (NEGATIVE); KETONES,URINE Negative (NEGATIVE); LEUKOCYTE ESTERASE ,URINE Small (NEGATIVE); NITRATE,URINE Negative (NEGATIVE); OCCULT BLOOD,URINE Negative (NEGATIVE); PH,URINE 6.5 (5.0-8.0); PROTEIN,URINE Negative (NEGATIVE); UROBILINOGEN,URINE 0.2 mg/dL (0.2-1.0)
[2021-05-23 13:30] LABS: BACTERIA,URINE Many /HPF (None Seen); RBC,URINE 0-1 /HPF (0-1); SQUAMOUS EPITHELIAL CELL,UR Rare /HPF (0-2); WBC,URINE 0-1 /HPF (0-1)
[2021-05-23 14:28] VITALS: BP 145/65
== END 2021-05-23 14:56 | disposition home or self-care (01) ==
LOC: EDH 10:12
DX: I10 Essential (primary) hypertension (principal); F41.9 Anxiety disorder, unspecified; D61.818 Other pancytopenia; E78.00 Pure hypercholesterolemia, unspecified; E11.9 Type 2 diabetes mellitus without complications; Z79.84 Long term (current) use of oral hypoglycemic drugs; Z79.899 Other long term (current) drug therapy
CPT/HCPCS: 36415; 70450; 80053; 81001; 82140; 82550; 83735; 84484; 85025; 87077; 87088; 87186; 93005

== ENCOUNTER 2021-06-21 13:19 | Inpatient (IN) | payer MEDICARE ==
[~2021-06-21] VITALS: Ht 152.4 cm; Wt 90.7 kg
[2021-06-21] MEDS ORDERED: 0.9%NACL 1000ML 1,000 ML IV ONE (14:00)
[2021-06-21 14:14] LABS: APPEARANCE,URINE Cloudy (CLEAR); BILIRUBIN,URINE Moderate (NEGATIVE); COLOR,URINE Dark Yellow (YELLOW); GLUCOSE, URINE (UA) Negative (NEGATIVE); KETONES,URINE 15 mg/dL (NEGATIVE); LEUKOCYTE ESTERASE ,URINE Trace (NEGATIVE); NITRATE,URINE Negative (NEGATIVE); OCCULT BLOOD,URINE Negative (NEGATIVE); PROTEIN,URINE POS 1+ mg/dL (NEGATIVE)
[2021-06-21 14:27] LABS: BACTERIA,URINE Moderate /HPF (None Seen); MUCUS,URINE Moderate LPF (None Seen); SQUAMOUS EPITHELIAL CELL,UR Many /HPF (0-2)
[2021-06-21 14:40] LABS: BASOPHILS % (AUTO) 0.2 % (0.0-5.0); HEMATOCRIT 24.3 % (36-48); LYMPHOCYTES % (AUTO) 3.2 % (21.0-51.0); MEAN CORPUSCULAR HEMOGLOBIN 26.5 pg (27.0-33.0); MEAN CORPUSCULAR HGB CONC 31.3 g/dL (32.0-36.0); MEAN CORPUSCULAR VOLUME 84.7 fL (79-99); MONOCYTES % (AUTO) 7.8 % (3.0-13.0); NEUTROPHILS % (AUTO) 77.6 % (40.0-77.0); PLATELET COUNT (AUTO) 75 K/uL (130-400); RED BLOOD CELL COUNT(AUTO) 2.87 MIL/uL (4.00-5.50); RED CELL DISTRIBUTION WIDTH 16.3 % (11.0-15.5); WHITE BLOOD COUNT (AUTO) 14.2 K/uL (4.8-10.8)
[2021-06-21 14:49] LABS: CREATININE 2.2 mg/dL (0.5-1.5); POTASSIUM 4.9 mmol/L (3.5-5.1)
[2021-06-21 15:03] LABS: ALBUMIN 2.4 g/dL (3.5-5.0); BILIRUBIN,TOTAL 0.9 mg/dL (0.2-1.0); THYROID STIMULATING HORMONE 1.54 uIU/mL (0.36-3.74); TOTAL PROTEIN, SERUM 5.5 g/dL (6.0-8.3)
[2021-06-21] MEDS ORDERED: ASPIRIN 81MG CHEW TAB PO ONE (16:00)
[2021-06-21] MEDS ORDERED: ASPIRIN 81MG CHEW TAB ONE ×2 (16:06→17:08)
[2021-06-21] MEDS ORDERED: ACETAMINOPHEN 325 MG TAB PO PRN ×2 (16:30)
[2021-06-21] MEDS: INSULIN HUMULIN R 100 UNIT/ML 3ML SQ SCH ×2 (16:30→21:00)
[2021-06-21] MEDS ORDERED: ONDANSETRON 4MG INJ IV PRN (16:30)
[2021-06-21 16:53] LABS: CREATININE,URINE RANDOM 373 mg/dL (30-135); SODIUM,URINE RANDOM 24 mmol/l (40-220)
[2021-06-21] MEDS ORDERED: PHARMACY COMMUNICATION MISC SCH ×2 (17:00→18:00)
[2021-06-21 17:01] LABS: CRP QUANTITATIVE 131.4 mg/L (0.00-9.0)
[2021-06-21 17:39] LABS: % IRON SATURATION 5.7 % (22-44)
[2021-06-21] MEDS ORDERED: LINEZOLID 600 MG/ISO-OSM 300 ML IV SCH (18:00)
[2021-06-21] MEDS ORDERED: MEROPENEM 500 MG VIAL IV SCH ×3 (18:00→21:00)
[2021-06-21] MEDS ORDERED: SODIUM CHLORIDE 3% FOR INHALATION 4 ML/AMP VIAL.NEB IH ONE ×2 (18:07→23:57)
[2021-06-21] MEDS: ALBUMIN (HUMAN) 5% 250 ML IV SCH (18:52)
[2021-06-21 20:49] LABS: HEMATOCRIT 24.2 % (36-48)
[2021-06-21] MEDS: PANTOPRAZOLE 40 MG/VIAL IVP SCH (22:15)
[2021-06-22] VITALS (26 sets, daily range): BP systolic 92–158; BP diastolic 41–102
[2021-06-22] MEDS: ALBUMIN (HUMAN) 5% 250 ML IV SCH
[2021-06-22 02:46] LABS: HEMATOCRIT 22.5 % (36-48)
[2021-06-22 04:50] LABS: HEMATOCRIT 22.4 % (36-48); MEAN CORPUSCULAR HEMOGLOBIN 26.2 pg (27.0-33.0); MEAN CORPUSCULAR HGB CONC 31.3 g/dL (32.0-36.0); MEAN CORPUSCULAR VOLUME 83.9 fL (79-99); PLATELET COUNT (AUTO) 48 K/uL (130-400); RED BLOOD CELL COUNT(AUTO) 2.67 MIL/uL (4.00-5.50); RED CELL DISTRIBUTION WIDTH 16.5 % (11.0-15.5); WHITE BLOOD COUNT (AUTO) 7.7 K/uL (4.8-10.8)
[2021-06-22 04:58] LABS: CREATININE 1.7 mg/dL (0.5-1.5); POTASSIUM 4.4 mmol/L (3.5-5.1)
[2021-06-22] MEDS ORDERED: VANCOMYCIN 1G/250ML KIT 250 ML IV ONE (06:00)
[2021-06-22] MEDS ORDERED: VANCOMYCIN PROTOCOL PER PHARMACY IV SCH ×2 (06:00→08:00)
[2021-06-22 06:57] LABS: HEMATOCRIT 22.2 % (36-48)
[2021-06-22] MEDS ORDERED: SODIUM CHLORIDE 3% FOR INHALATION 4 ML/AMP VIAL.NEB IH ONE (07:11)
[2021-06-22] MEDS: MEROPENEM 500 MG VIAL IV SCH ×3 (07:25→21:10)
[2021-06-22] MEDS: INSULIN HUMULIN R 100 UNIT/ML 3ML SQ SCH ×3 (07:30→19:51)
[2021-06-22] MEDS ORDERED: LINEZOLID 600 MG/ISO-OSM 300 ML IV SCH (08:00)
[2021-06-22] MEDS ORDERED: VANCOMYCIN 1G/250ML KIT 250 ML IV SCH ×2 (08:00→09:00)
[2021-06-22 08:26] LABS: INR 1.26 (0.85-1.15); PROTHROMBIN TIME 13.4 SEC (9.6-11.6)
[2021-06-22 08:27] LABS: PARTIAL THROMBOPLASTIN TIME 34.1 SEC (26.3-35.5)
[2021-06-22] MEDS ORDERED: DEXTROSE 50%-WATER 50 ML DISP.SYRIN IV PRN (09:00)
[2021-06-22] MEDS ORDERED: DEXTROSE 5 %-0.45 % NACL 1,000 ML IV SCH (09:00)
[2021-06-22] MEDS: PANTOPRAZOLE 40 MG/VIAL IVP SCH ×2 (09:20→21:05)
[2021-06-22] MEDS ORDERED: FOLIC ACID 5 MG/ML VIAL IV SCH (10:00)
[2021-06-22] MEDS: LACTULOSE 20 GM/30 ML UDCUP PO SCH ×2 (10:15→21:00)
[2021-06-22] MEDS ORDERED: RIFAXIMIN 200 MG TABLET PO SCH (10:15)
[2021-06-22] MEDS: THIAMINE HCL 100 MG/ML 2ML VIAL IVP SCH (10:15)
[2021-06-22 12:34] LABS: ABG OXYGEN SATURATION 39.2 % (95.0-99.0); BASE EXCESS,VENOUS BLOOD GAS -5.8 (-2.0-3.0); HCO3,VENOUS BLOOD GAS 19.9 (21.0-28.0); PCO2,VENOUS BLOOD GAS 40 (32-45); PH,VENOUS BLOOD GAS 7.317 (7.350-7.450)
[2021-06-22] MEDS: FUROSEMIDE 20MG VIAL IV SCH (12:42)
[2021-06-22] MEDS ORDERED: HYDROMORPHONE 0.5 MG SYG (0.5MG/0.5ML) IVP PRN (13:30)
[2021-06-22] MEDS ORDERED: AMLO-257 PO (17:05)
[2021-06-22] MEDS ORDERED: HYDR10SY17 PO (17:05)
[2021-06-22] MEDS ORDERED: LEVO25CA4 PO (17:05)
[2021-06-22] MEDS: RIFAXIMIN 550 MG TABLET PO SCH (21:00)
[2021-06-23] VITALS (30 sets, daily range): BP systolic 119–163; BP diastolic 48–82
[2021-06-23] MEDS: FUROSEMIDE 20MG VIAL IV SCH ×2 (00:47→11:13)
[2021-06-23] MEDS: MEROPENEM 500 MG VIAL IV SCH ×2 (05:12→13:27)
[2021-06-23] MEDS: INSULIN HUMULIN R 100 UNIT/ML 3ML SQ SCH ×3 (05:13→16:28)
[2021-06-23 06:21] LABS: BASOPHILS % (AUTO) 0.2 % (0.0-5.0); EOSINOPHILS % (AUTO) 1.4 % (0.0-8.0); HEMATOCRIT 27.8 % (36-48); LYMPHOCYTES % (AUTO) 10.5 % (21.0-51.0); MEAN CORPUSCULAR HGB CONC 31.7 g/dL (32.0-36.0); MEAN CORPUSCULAR VOLUME 85.3 fL (79-99); MONOCYTES % (AUTO) 12.7 % (3.0-13.0); NEUTROPHILS % (AUTO) 74.4 % (40.0-77.0); PLATELET COUNT (AUTO) 72 K/uL (130-400); RED BLOOD CELL COUNT(AUTO) 3.26 MIL/uL (4.00-5.50); RED CELL DISTRIBUTION WIDTH 16.4 % (11.0-15.5); WHITE BLOOD COUNT (AUTO) 8.3 K/uL (4.8-10.8)
[2021-06-23 06:50] LABS: MAGNESIUM 2.3 mg/dL (1.80-2.40)
[2021-06-23 06:57] LABS: ALBUMIN 2.9 g/dL (3.5-5.0); BILIRUBIN,TOTAL 1.2 mg/dL (0.2-1.0); CREATININE 1.7 mg/dL (0.5-1.5); POTASSIUM 4.5 mmol/L (3.5-5.1)
[2021-06-23] MEDS ORDERED: SOD FERRIC GLUC COMPLEX/SUC 125 MG in 0.9%NACL 100ML 100 ML IV SCH (09:00)
[2021-06-23] MEDS ORDERED: COMPOUND IV MISC 1 EACH IVSOLN MISC PRN (09:00)
[2021-06-23] MEDS: THIAMINE HCL 100 MG/ML 2ML VIAL IVP SCH (09:13)
[2021-06-23] MEDS: PANTOPRAZOLE 40 MG/VIAL IVP SCH (09:13)
[2021-06-23] MEDS: RIFAXIMIN 550 MG TABLET PO SCH (09:13)
[2021-06-23] MEDS: LACTULOSE 20 GM/30 ML UDCUP PO SCH (09:13)
[2021-06-23] MEDS ORDERED: HYDROMORPHONE 0.5 MG SYG (0.5MG/0.5ML) ONE (11:10)
[2021-06-23] MEDS ORDERED: HYDROMORPHONE 1 MG INJ ONE (11:16)
[2021-06-23] MEDS ORDERED: HYDROMORPHONE 1 MG INJ IVP PRN (13:30)
== END 2021-06-23 19:00 | disposition hospice, inpatient (51) | DRG 871 ==
LOC: EDH 13:19 → EDHIP 16:23 → UNDOADMIN 16:23 → 2CH 06-22 16:05
PROVIDERS: ADMIT Internal Medicine; ATTEND Internal Medicine
PROC: 30233R1 Transfusion of Nonautologous Platelets into Peripheral Vein, Percutaneous Approach (ICD-10-PCS; principal; 2021-06-22)
PROC: 30233N1 Transfusion of Nonautologous Red Blood Cells into Peripheral Vein, Percutaneous Approach (ICD-10-PCS; 2021-06-22)
PROC: 5A09357 Assistance with Respiratory Ventilation, Less than 24 Consecutive Hours, Continuous Positive Airway Pressure (ICD-10-PCS; 2021-06-22)
PROC: 5A09357 Assistance with Respiratory Ventilation, Less than 24 Consecutive Hours, Continuous Positive Airway Pressure (ICD-10-PCS; 2021-06-23)
DX: A41.89 Other specified sepsis (principal); I21.4 Non-ST elevation (NSTEMI) myocardial infarction; J96.01 Acute respiratory failure with hypoxia; N39.0 Urinary tract infection, site not specified; N17.9 Acute kidney failure, unspecified; I13.0 Hypertensive heart and chronic kidney disease with heart failure and stage 1 through stage 4 chronic kidney disease, or unspecified chronic kidney disease; R65.20 Severe sepsis without septic shock; E11.22 Type 2 diabetes mellitus with diabetic chronic kidney disease; N18.9 Chronic kidney disease, unspecified; Z66 Do not resuscitate; D63.1 Anemia in chronic kidney disease; D69.6 Thrombocytopenia, unspecified; E66.9 Obesity, unspecified; E78.00 Pure hypercholesterolemia, unspecified; D64.9 Anemia, unspecified; E86.0 Dehydration; F03.90 Unspecified dementia, unspecified severity, without behavioral disturbance, psychotic disturbance, mood disturbance, and anxiety; K00.7 Teething syndrome; R19.7 Diarrhea, unspecified; I50.9 Heart failure, unspecified; K72.90 Hepatic failure, unspecified without coma; K74.60 Unspecified cirrhosis of liver; F41.9 Anxiety disorder, unspecified; F32.A Depression, unspecified; Z68.39 Body mass index [BMI] 39.0-39.9, adult; Z87.440 Personal history of urinary (tract) infections; Z83.3 Family history of diabetes mellitus
CPT/HCPCS: 36415; 36600; 70450; 71045; 72170; 73620; 76705; 76770; 80048; 80053; 81001; 82140; 82550; 82570; 82803; 82948; 83540; 83550; 83605; 83690; 83735; 83880; 84134; 84145; 84300; 84443; 84484; 85014; 85018; 85025; 85027; 85378; 85384; 85610; 85730; 86140; 86850; 86900; 86901; 86923; 87040; 87077; 87088; 87186; 87635; 93005; 93970; 94640; 94660; 99291; C9113; C9803; G0378; J1170; J1940; J2020; J2185; J2916; J3411; J7030; J7042; P9016; P9034; P9045